=== PATIENT | female | born 1995 | race Two or more races ===

== ENCOUNTER 2018-03-27 16:54 | Emergency (ER) | payer SELFPAY ==
[~2018-03-27] VITALS: Ht 167.6 cm; Wt 49.9 kg
--- NOTE | 2018-03-27 17:00 | NUR ---
PT BIB SELF C/O SEVERE SORETHROAT X 2-3 DAYS, PT IS AAOX4, NOT IN RESPIRATORY DISTRESS, KEPT RESTED AND COMFORTABLE, SEEN AND EXAMINED BY DEGRASSE SKILLED NURSING PROFESSIONAL.
[2018-03-27] MEDS ORDERED: DEXAMETHASONE SOD PHOSPHATE 4 MG/ML VIAL ONE (17:18)
[2018-03-27] MEDS ORDERED: IV NS 0.9% 1,000 ML BAG IV ONE (17:30)
[2018-03-27] MEDS ORDERED: DEXAMETHASONE SOD PHOSPHATE 4 MG/ML VIAL IM ONE (17:30)
--- NOTE | 2018-03-27 18:02 | NUR ---
THROAT SWAB OBTAINED AND SENT TO LAB.
--- NOTE | 2018-03-27 19:29 | NUR ---
IV removed. Catheter intact and site benign. Pressure and 4x4 applied to site. No bleeding noted. Patient discharged to home in stable condition. Written and verbal after care instructions given. Patient verbalizes understanding of instruction.
[2018-03-27 19:30] VITALS: BP 108/75
== END 2018-03-27 19:30 | disposition home or self-care (01) ==
LOC: ER 16:56
DX: J02.9 Acute pharyngitis, unspecified (principal); R59.1 Generalized enlarged lymph nodes
CPT/HCPCS: 87070-TC; J1100; J7030

== ENCOUNTER 2018-03-30 17:16 | Emergency (ER) | payer SELFPAY ==
[~2018-03-30] VITALS: Ht 167.6 cm; Wt 52.2 kg
[2018-03-30 17:21] VITALS: BP 127/69
[2018-03-30] MEDS ORDERED: IBUPROFEN 600 MG TABLET PO ONE ×2 (18:00→18:02)
[2018-03-30] MEDS ORDERED: CEFTRIAXONE 1 G VIAL IM ONE (18:00)
[2018-03-30] MEDS ORDERED: CEFTRIAXONE 1 G VIAL ONE (18:01)
[2018-03-30] MEDS ORDERED: LIDOCAINE 1% INJ 50 ML MDV IJ ONE (18:01)
--- NOTE | 2018-03-30 19:06 | NUR ---
Patient discharged to home in stable condition. Written and verbal after care instructions given. Patient verbalizes understanding of instruction.
== END 2018-03-30 19:06 | disposition home or self-care (01) ==
LOC: ER 17:16
DX: J02.0 Streptococcal pharyngitis (principal); F17.200 Nicotine dependence, unspecified, uncomplicated
CPT/HCPCS: 96372; 99283; A4606; J0696; J3490; Z7610